=== PATIENT | male | born 1970 ===

== ENCOUNTER → 2021-01-30 15:19 | Outpatient (CLI) | payer OTHER, SELFPAY | PROVIDERS: PCP Family Medicine; Referring Provider Specialist; Visit Provider Specialist | DX: R97.20 Elevated prostate specific antigen [PSA] (principal); N39.0 Urinary tract infection, site not specified; N39.9 Disorder of urinary system, unspecified | CPT/HCPCS: 36415; 51798; 81002; 84153; 99213 ==